=== PATIENT | male | born 1980 | race Caucasian/White ===

== ENCOUNTER 2017-10-14 05:24 | Observation (INO) | payer SELFPAY ==
[~2017-10-14] VITALS: Ht 177.8 cm; Wt 83.9 kg
[~2017-10-14 05:24] MED LIST: CEPHALEXIN500 MG OR; CLINDAMYCIN150 MG OR; FLEXERIL OR; FLEXERIL10 MG PO; LORTAB 5 OR; NAPROSYN500 MG PO; NO; NO MEDS; TORADOL OR; ULTRAM50 MG OR
[2017-10-14 07:57] LABS: HEMATOCRIT 32.3 % (39.0-50.0); HEMOGLOBIN 10.1 g/dl (14.0-18.0); IMMATURE GRANULOCYTES 0.4 % (0.0-1.0); MEAN CELL VOLUME 85.2 fL CALC (80.0-100.0); MEAN CORPUSCULAR HGB 26.6 pG CALC (26.0-32.0); MEAN CORPUSCULAR HGB CONC 31.3 g/L CALC (32.0-36.0); NEUT# 10.79 thou/uL (1.82-7.42); RED BLOOD COUNT 3.79 mill/uL (4.70-6.10); RED CELL DISTRI WIDTH 13.3 % (11.5-15.5)
[2017-10-14 08:07] LABS: ALBUMIN 3.2 g/dL (3.2-5.0); ALKALINE PHOSPHATASE 111 u/l (38-126); ANION GAP 14 (6-22 (CALC)); BILIRUBIN, TOTAL 0.3 mg/dL (0.0-1.4); BUN 15 mg/dL (9-20); BUN/CREATININE RATIO 21 (12-20 (CALC)); CARBON DIOXIDE 28 mmol/l (22-30); CHLORIDE 100 mmol/l (95-108); CREATININE 0.7 mg/dL (0.7-1.3); GFR > 60 ML/MIN (>=60 (CALC)); GFR FOR AFR.AMER. > 60 ML/MIN (>=60 (CALC)); POTASSIUM 3.8 mmol/l (3.5-5.1); SGOT/AST 15 u/l (17-59); SGPT/ALT 34 u/l (21-72); SODIUM 139 mmol/l (137-146); TOTAL PROTEIN 6.9 g/dL (6.3-8.2)
[2017-10-14 09:30] VITALS: BP 118/77
[2017-10-14 12:00] VITALS: BP 110/68
== END 2017-10-14 15:25 | disposition left against medical advice (07) | DRG 603 ==
LOC: ED 05:24 → ED-I 08:31 → ED 08:43 → ICU 08:44
PROVIDERS: Emergency Medicine; ADMIT Internal Medicine; ATTEND Internal Medicine
DX: L03.115 Cellulitis of right lower limb (principal); L02.415 Cutaneous abscess of right lower limb; I10 Essential (primary) hypertension; F17.210 Nicotine dependence, cigarettes, uncomplicated; F19.11 Other psychoactive substance abuse, in remission
CPT/HCPCS: J1650

== ENCOUNTER 2018-04-06 15:57 | Emergency (ER) | payer SELFPAY ==
[~2018-04-06] VITALS: Ht 177.8 cm; Wt 86.4 kg
[2018-04-06 17:57] LABS: HEMATOCRIT 37.1 % (39.0-50.0); IMMATURE GRANULOCYTES 0.2 % (0.0-5.0); MEAN CELL VOLUME 82.8 fL CALC (80.0-100.0); MEAN CORPUSCULAR HGB 27.2 pG CALC (26.0-32.0); MEAN CORPUSCULAR HGB CONC 32.9 g/L CALC (32.0-36.0); NEUT# 7.21 thou/uL (1.82-7.42); RED BLOOD COUNT 4.48 mill/uL (4.70-6.10); RED CELL DISTRI WIDTH 14.6 % (11.5-15.5)
[2018-04-06 17:58] LABS: ALBUMIN 3.7 g/dL (3.2-5.0); ALKALINE PHOSPHATASE 136 u/l (38-126); ANION GAP 12 (6-22 (CALC)); BILIRUBIN, TOTAL 0.7 mg/dL (0.0-1.4); BUN 17 mg/dL (9-20); BUN/CREATININE RATIO 25 (12-20 (CALC)); CARBON DIOXIDE 25 mmol/l (22-30); CHLORIDE 106 mmol/l (95-108); CREATININE 0.7 mg/dL (0.7-1.3); GFR > 60 ML/MIN (>=60 (CALC)); GFR FOR AFR.AMER. > 60 ML/MIN (>=60 (CALC)); POTASSIUM 4.4 mmol/l (3.5-5.1); SODIUM 139 mmol/l (137-146); TOTAL PROTEIN 7.4 g/dL (6.3-8.2)
[2018-04-06 17:59] LABS: SGOT/AST 107 u/l (17-59)
[2018-04-06 18:04] LABS: URINE BILIRUBIN - DIPSTICK NEGATIVE (NEGATIVE); URINE BLOOD DIPSTICK NEGATIVE (NEGATIVE); URINE COLOR YELLOW; URINE GLUCOSE - DIPSTICK NEGATIVE (NEGATIVE); URINE KETONE NEGATIVE (NEGATIVE); URINE LEUK ESTERASE NEGATIVE (NEGATIVE); URINE NITRITE - DIPSTICK NEGATIVE (Negative); URINE PROTEIN - DIPSTICK NEGATIVE (NEG-TRACE); URINE SPECIFIC GRAVITY <=1.005; URINE UROBILINOGEN - DIPSTICK 0.2 E.U./dL (0.2)
[2018-04-06 18:05] LABS: BARBITURATES NEGATIVE (NEGATIVE); COCAINE NEGATIVE (NEGATIVE); METHADONE NEGATIVE (NEGATIVE); OXCYCODONE POSITIVE (NEGATIVE); TETRAHYDROCANNABIONOL NEGATIVE (NEGATIVE); TRICYLIC ANTIDEPRESSANTS NEGATIVE (NEGATIVE); URINE CLARITY CLEAR
[2018-04-06 18:11] LABS: HEMOGLOBIN 12.2 g/dl (14.0-18.0)
[2018-04-06 18:30] VITALS: BP 126/84
== END 2018-04-06 18:30 | DRG 556 ==
LOC: ED 15:57
DX: M79.672 Pain in left foot (principal); I10 Essential (primary) hypertension; F17.210 Nicotine dependence, cigarettes, uncomplicated

== ENCOUNTER 2021-04-08 11:36 | Emergency (ER) | payer SELFPAY ==
[~2021-04-08] VITALS: Ht 177.8 cm; Wt 79.5 kg
[2021-04-08] MEDS ORDERED: ULTRAM50 MG PO (13:42)
[2021-04-08] MEDS ORDERED: FLEXERIL5 M1 PO (13:42)
[2021-04-08 13:54] VITALS: BP 121/83
== END 2021-04-08 13:54 | disposition home or self-care (01) | DRG 563 ==
LOC: ED 11:36
DX: S39.012A Strain of muscle, fascia and tendon of lower back, initial encounter (principal); F17.210 Nicotine dependence, cigarettes, uncomplicated; X58.XXXA Exposure to other specified factors, initial encounter

== ENCOUNTER 2022-10-08 15:37 | Emergency (ER) | payer SELFPAY ==
[~2022-10-08] VITALS: Ht 177.8 cm; Wt 89.3 kg
[~2022-10-08 15:37] MED LIST changes: +FLEXERIL5 M1 PO; +ULTRAM50 MG PO
[2022-10-08 15:51] VITALS: BP 116/81
[2022-10-08 16:00] VITALS: BP 113/76
[2022-10-08 16:30] VITALS: BP 111/74
[2022-10-08 17:00] VITALS: BP 113/74
[2022-10-08] MEDS ORDERED: CLEOCIN300 MG PO (17:23)
[2022-10-08 17:38] VITALS: BP 113/74
== END 2022-10-08 17:41 | disposition home or self-care (01) | DRG 603 ==
LOC: ED 15:37
DX: L03.115 Cellulitis of right lower limb (principal); L02.415 Cutaneous abscess of right lower limb; I10 Essential (primary) hypertension; F17.200 Nicotine dependence, unspecified, uncomplicated